=== PATIENT | male | born 1960 | race Caucasian/White ===

== ENCOUNTER 2022-04-27 14:00 | Emergency (ER) | payer MEDICAID ==
[~2022-04-27] VITALS: Ht 190.5 cm; Wt 81.8 kg
[2022-04-27 14:08] VITALS: BP 166/104
== END 2022-04-27 15:25 | disposition home or self-care (01) ==
LOC: ER 14:01
DX: Z48.02 Encounter for removal of sutures (principal); S61.411D Laceration without foreign body of right hand, subsequent encounter; S61.214D Laceration without foreign body of right ring finger without damage to nail, subsequent encounter; S61.210D Laceration without foreign body of right index finger without damage to nail, subsequent encounter; S61.212D Laceration without foreign body of right middle finger without damage to nail, subsequent encounter; X58.XXXD Exposure to other specified factors, subsequent encounter
CPT/HCPCS: 99281